=== PATIENT | female | born 1995 | race Caucasian/White ===

== ENCOUNTER 2016-07-29 01:15 | Emergency (ER) | payer OTHER ==
--- NOTE | ~2016-07-29 | CR21 ---
[facility]. [facility] A Service [facility] RADIOLOGY TEXT RESULTS PATIENT: MARGARITA RENTERIA LOCATION: SED : [birth year] UNIT #: [id number] AGE: [address]: Julio Argueta MD SEX: F ORDER DR: [id number] [id number] MR#: [id number] Acc #: [id number] NAME: MARGARITA RENTERIA : 1995 SEX: F STUDY DATE/TIME: 07/29/2016 1:04 UNIT: SED ROOM: STUDY DESCRIPTION: CR Ankle Min 3 Views Rt Attending Physician: Julio Argueta M.D. Ordering Physician: Julio Argueta M.D. Primary Care Physician: Primary Care Physician No MEDICAL IMAGING REPORT This report is preliminary unless electronic signature is present. EXAM Right ankle, 3 views, 07/29/2016 COMPARISON None. INDICATION 20-year-old female with right ankle pain and lateral swelling after falling off of her bed tonight. FINDINGS There is an oblique longitudinally oriented, nondisplaced fracture through the distal fibular shaft. There is associated subcutaneous hematoma over the lateral malleolus. IMPRESSION 1. Longitudinal oblique nondisplaced fracture of the distal fibular shaft. Associated soft tissue swelling/subcutaneous hematoma over the lateral malleolus. 2. No dislocation. Dictated by... Khoa Jennings M.D. THIS IS AN ELECTRONICALLY VERIFIED REPORT Khoa Jennings M.D. at 08/03/2016 8:54 AM Janet TD: 07/29/2016 03:45 JOB #: [id number] [facility]. [facility] A Service [facility] RADIOLOGY TEXT RESULTS PATIENT: MARGARITA RENTERIA LOCATION: SED : 94 UNIT #: [id number] AGE: [address]: Julio Argueta MD SEX: F ORDER DR: MEDICAL IMAGING REPORT
[~2016-07-29 01:15] MED LIST: BIRTH CONTROL PILL PO; NO MEDICATIONS
== END 2016-07-29 02:44 | disposition home or self-care (01) ==
LOC: SED 01:15
DX: S82.831A Other fracture of upper and lower end of right fibula, initial encounter for closed fracture (principal); F17.200 Nicotine dependence, unspecified, uncomplicated; Z88.5 Allergy status to narcotic agent; W18.30XA Fall on same level, unspecified, initial encounter; Y92.009 Unspecified place in unspecified non-institutional (private) residence as the place of occurrence of the external cause
CPT/HCPCS: 29540; 73610; 99283

== ENCOUNTER 2016-12-10 20:15 | Emergency (ER) | payer OTHER ==
[2016-12-10] MEDS ORDERED: BIRTH CONTROL PILL PO (20:24)
[2016-12-10] MEDS ORDERED: FOLIC ACID (20:24)
[2016-12-10] MEDS ORDERED: LAMICTAL (20:24)
== END 2016-12-10 21:11 | disposition home or self-care (01) ==
LOC: SED 20:15
DX: R55 Syncope and collapse (principal); G40.909 Epilepsy, unspecified, not intractable, without status epilepticus; T67.5XXA Heat exhaustion, unspecified, initial encounter; F17.200 Nicotine dependence, unspecified, uncomplicated; Z79.899 Other long term (current) drug therapy; Z88.8 Allergy status to other drugs, medicaments and biological substances; X58.XXXA Exposure to other specified factors, initial encounter; Y92.9 Unspecified place or not applicable
CPT/HCPCS: 99284